=== PATIENT | female | born 1935 | race Caucasian/White ===

== ENCOUNTER 2021-02-08 14:23 | Outpatient (CLI) | payer MEDICARE | END 2021-02-08 14:24 | disposition home or self-care (01) | LOC: CSHULT 14:23 | PROVIDERS: ATTEND Internal Medicine | DX: I70.203 Unspecified atherosclerosis of native arteries of extremities, bilateral legs (principal); M71.22 Synovial cyst of popliteal space [Baker], left knee | CPT/HCPCS: 93925 ==